=== PATIENT | male | born 1985 | race Caucasian/White ===

== ENCOUNTER 2020-06-03 09:39 | Emergency (ER) | payer OTHER ==
[2020-06-03 09:51] VITALS: BP 110/69; PULSE 70; BMI 25.4
[2020-06-03 09:52] VITALS: TEMP 97.3
[2020-06-03] MEDS ORDERED: NAPROXEN 500 MG TABLET PO ONE (10:45)
[2020-06-03] MEDS ORDERED: NAPROXEN 500 MG TABLET ONE (10:50)
--- NOTE | 2020-06-03 10:56 | PDOC ---
History of Present Illness - General Chief Complaint: Pain Stated Complaint: BACK PAIN Time Seen by Provider: 06/03/20 10:07 History Source: Patient Exam Limitations: Clinical Condition - History of Present Illness Initial Comments: 06/03/20 10:51 Patient with no significant past medical history present with complaint of aching pain to right upper back and now right upper chest area for a week now which has been intermittent. Patient report 2 out of 10 pain. Patient reported pain as annoying pain. Denies numbness or tingling sensation, radiculopathy, dizziness, shortness of breath, palpitation, nausea or vomiting. Patient reported had an episode of nausea a week ago but does not know if it is related to the chest pain. Patient report has not had any nausea since then. Denies family history of cardiomyopathy or MIs. Denies any other symptoms. Patient has not taken anything for symptoms Is this a multiple visit Asthma Patient?: No Timing/Duration: 1 week Past History - Medical History Allergies/Adverse Reactions: Allergies Allergy/AdvReac Type Severity Reaction Status Date / Time No Known Allergies Allergy Verified 06/03/20 09:52 Home Medications: Ambulatory Orders Naproxen 500 mg PO BID PRN #20 tablet 06/03/20 COPD: No Other medical history: DENIES - Psycho-Social/Smoking History Smoking History: Never smoked Have you smoked in the past 12 months: No Information on smoking cessation initiated: No - Substance Abuse Hx (Audit-C & DAST Scrn) How often the patient has a drink containing alcohol: Monthly or less Score: In Men: 4 or > Positive; In Women: 3 or > Positive: 1 Screen Result (Pos requires Nsg. Audit-10AR): Negative In the last yr the pt used illegal drug/Rx for NonMed reason: No Score: Yes response is considered Positive: 0 Screen Result (Positive result requires Nsg. DAST-10): Negative Review of Systems - Review of Systems Able to Perform ROS?: Yes Is the patient limited Estonian proficient: No Constitutional: No: Chills, Fever, Malaise HEENTM: No: Symptoms Reported, See HPI, Eye Pain, Blurred Vision, Tearing, Recent change in vision, Double Vision, Cataracts, Ear Pain, Ocular Prothesis, Ear Discharge, Nose Pain, Nose Congestion, Tinnitus, Nose Bleeding, Hearing Loss, Throat Pain, Throat Swelling, Mouth Pain, Dental Problems, Difficulty Swallowing, Mouth Swelling, Other Respiratory: No: Symptoms reported, See HPI, Cough, Orthopnea, Shortness of Breath, SOB with Exertion, SOB at Rest, Stridor, Wheezing, Productive cough, Hemoptysis, Other Cardiac (ROS): Yes: Symptoms Reported, See HPI, Chest Pain (right side chest wall pain). No: Edema, Irregular Heart Rate, Lightheadedness, Palpitations, Syncope, Chest Tightness, Other ABD/GI: No: Symptoms Reported, Nausea, Vomiting Integumentary: No: Symptoms Reported Neurological: No: Symptoms reported, Headache, Numbness, Weakness, Dizziness All Other Systems: Reviewed and Negative *Physical Exam - Vital Signs Last Vital Signs Temp Pulse Resp BP Pulse Ox 97.3 F L 70 17 110/69 99 06/03/20 09:48 06/03/20 09:48 06/03/20 09:48 06/03/20 09:48 06/03/20 09:48 - Physical Exam 06/03/20 10:56 GENERAL: Well developed, well nourished. Awake and alert. No acute distress. HEENT: Normocephalic, atraumatic. PERRLA, EOMI. No conjunctival pallor. Sclera are non-icteric. Moist mucous membranes. Oropharynx is clear. NECK: Supple. Full ROM. CARDIOVASCULAR: Regular rate and rhythm. No murmurs, rubs, or gallops. Distal pulses are 2+ and symmetric. PULMONARY: No evidence of respiratory distress. Lungs clear to auscultation bilaterally. No wheezing, rales or rhonchi. ABDOMINAL: Soft. Non-tender. Non-distended. No rebound or guarding. No organomegaly. Normoactive bowel sounds. MUSCULOSKELETAL Normal range of motion at all joints. Mild tenderness over scapular of posterior right shoulder EXTREMITIES: No cyanosis. No clubbing. No edema. No calf tenderness. SKIN: Warm and dry. Normal capillary refill. No rashes. No jaundice. NEUROLOGICAL: Alert, awake, appropriate. Gait is normal without ataxia. PSYCHIATRIC: Cooperative. Good eye contact. Appropriate mood General Appearance: Yes: Nourished, Appropriately Dressed. No: Apparent Distress ED Treatment Course - RADIOLOGY Radiology Studies Ordered: Category Date Time Status CHEST PA & LAT [RAD] Stat Radiology 06/03/20 10:07 Taken Medical Decision Making - Medical Decision Making 06/03/20 10:53 Patient with no significant past medical history present with complaint of aching pain to right upper back and now right upper chest area for a week now which has been intermittent. Patient report 2 out of 10 pain. Patient reported pain as annoying pain. Denies numbness or tingling sensation, radiculopathy, dizziness, shortness of breath, palpitation, nausea or vomiting. Patient reported had an episode of nausea a week ago but does not know if it is related to the chest pain. Patient report has not had any nausea since then. Denies family history of cardiomyopathy or MIs. Denies any other symptoms. Patient has not taken anything for symptoms Exam significant for mild tenderness over right scapular right shoulder. Patient report chest wall pain feeling better when examining the chest wall as if felt like he was getting massage with chest wall examination. Patient in no acute distress. Chest x-ray unremarkable. Patient symptoms likely musculoskeletal pain and less likely cardiogenic pain. Naproxen 500 mg ordered for pain. Patient stable for discharge with advised to do naproxen as needed for pain and hot compresses to chest wall with strict follow-up instructions. Patient left department without complication and asymptomatic Discharge - Discharge Information Problems reviewed: Yes Clinical Impression/Diagnosis: Acute costochondritis Condition: Stable Disposition: HOME - Admission No - Additional Discharge Information Prescriptions: Naproxen 500 mg PO BID PRN #20 tablet PRN Reason: pain - Follow up/Referral Referrals: Jose A Perez MD [Staff Physician] - - Patient Discharge Instructions Patient Printed Discharge Instructions: DI for Costochondritis Additional Instructions: Your chest x-ray is completely normal. Your symptoms likely from muscle pain. Take prescribed medication as needed for pain. Apply heat to chest wall and back as needed. Follow-up referred tutoring manager if symptoms persist for more than 3 days - Post Discharge Activity
== END 2020-06-03 11:15 | disposition home or self-care (01) ==
LOC: JER 09:39
DX: M94.0 Chondrocostal junction syndrome [Tietze] (principal)
CPT/HCPCS: 71046-TC-FY; 99284-25